=== PATIENT | female | born 1985 | race African-American/Black ===

== ENCOUNTER 2017-05-02 15:36 | Emergency (ER) | payer OTHER ==
[~2017-05-02] VITALS: Ht 167.6 cm; Wt 51.2 kg
[2017-05-02 15:40] VITALS: Ht 167.6 cm; Wt 51.2 kg
[2017-05-02] MEDS ORDERED: ACETAMINOPHEN 500 MG TAB PO STA (16:18)
[2017-05-02] MEDS ORDERED: CLINDAMYCIN 600 MG/D5W (PMX) 50 ML IVPB SCH (16:30)
[2017-05-02] MEDS ORDERED: SOD CHLORIDE 0.9% 1,000 ML IV STA (16:37)
[2017-05-02 16:48] LABS: BASOPHILS % 0.3 % (0.0-2.0); HEMATOCRIT 34.9 % (37.0-47.0); HEMOGLOBIN 12.2 g/dl (12.0-16.0); LYMPHOCYTES # 1.3 10^3/ul (0.8-2.9); LYMPHOCYTES % 44.7 % (15.0-51.0); MEAN PLATELET VOLUME 11.7 fl (7.4-10.4); MONOCYTE # 0.3 10^3/ul (0.3-0.9); MONOCYTES % 9.2 % (0.0-11.0); NEUTROPHIL # 1.3 10^3/ul (1.6-7.5); NEUTROPHILS % 45.5 % (39.0-77.0); PLATELET COUNT 129 10^3/UL (140-415); RED BLOOD COUNT 4.36 10^6/ul (4.20-5.40); RED CELL DISTRIBUTION WIDTH 14.1 % (11.5-14.5)
[2017-05-02 17:03] LABS: ADD UMIC YES; UR ASCORBIC ACID NEGATIVE (NEGATIVE); UR BILIRUBIN (Dip) NEGATIVE (NEGATIVE); UR BLOOD (Dip) NEGATIVE (NEGATIVE); UR CLARITY SLIGHTLY CLOUDY (CLEAR); UR COLOR AMBER (YELLOW); UR GLUCOSE (Dip) NEGATIVE (NEGATIVE); UR KETONES (Dip) 1+ mg/dL (NEGATIVE); UR LEUKOCYTE ESTERASE (Dip) NEGATIVE Leu/ul (NEGATIVE); UR MUCUS MANY /HPF (NONE SEEN); UR NITRITE (Dip) NEGATIVE (NEGATIVE); UR RBC 2 /HPF (0-5); UR SPECIFIC GRAVITY (Dip) 1.032 (1.003-1.030); UR SQUAMOUS EPITHELIAL CELL FEW /HPF (FEW); UR TOTAL PROTEIN (Dip) 2+ mg/dl (NEGATIVE); UR UROBILINOGEN (Dip) 2+ mg/dL (NEGATIVE)
[2017-05-02 17:04] LABS: PARTIAL THROMBOPLASTIN TIME 29.2 Sec (25.0-35.0); PROTIME 13.2 Sec (12.2-14.2)
[2017-05-02 17:08] LABS: ALBUMIN 4.4 g/dl (3.3-4.9); ALBUMIN/GLOBULIN RATIO 1.22; BILIRUBIN,INDIRECT 0.2 mg/dl (0-1.1); BILIRUBIN,TOTAL 0.2 mg/dl (0.2-1.3); CALCIUM 8.6 mg/dl (8.4-10.2); CREATININE 0.87 mg/dl (0.44-1.00)
[2017-05-02] MEDS ORDERED: LIDOCAINE 1%/EPI 30 ML INJ INJ STA (17:08)
[2017-05-02] MEDS ORDERED: HYDROmorphONE 0.5 MG/0.5 ML SYG IV STA (17:57)
[2017-05-02] MEDS ORDERED: ONDANSETRON 4 MG INJ IV STA (18:00)
--- NOTE | 2017-05-02 18:12 | RADRPT ---
PROCEDURE: Left breast ultrasound. CLINICAL INDICATION: Left breast pain and tenderness, fibrocystic disease of breast TECHNIQUE: Left whole, four-quadrant, and retroareolar, breast and axillary sonography was perform ed. COMPARISON: None FINDINGS: No solid or suspicious masses. No areas of architectural distortion. No malignant adenopathy. There is a left, subareolar moderate mastitis with a 3.3 x 3.2 x 2 cm area of phlegmon. IMPRESSION: No sonographic evidence of malignancy. Left subareolar moderate mastitis with a 3.3 cm area of phleg mon. ACR BIRADS 2: BENIGN RPTAT: AA .Elise Centeno MD, MD Date Time Electronically viewed and signed by .Elise Centeno MD, MD on 05/02/2017 18:11 .F/
[2017-05-02] MEDS ORDERED: CLIN-73 PO (18:32)
[2017-05-02] MEDS ORDERED: HYDR-906 PO (18:33)
[2017-05-02 19:24] VITALS: BP 112/62; PULSE 78; RESP 22; TEMP 98.8
--- NOTE | 2017-05-02 20:13 | ERD ---
ER Documentation Chief Complaint Chief Complaint LEFT BREAST ABSCESS; TOOK MEDS, NOT IMPROVING; SENT FOR RE-EVAL HPI This is a 32-year-old female presenting to the emergency department with an subareolar abscess on her left breast for the past 2 weeks. Patient states that she was seen at all of you and was given Keflex and Bactrim, patient states that she finished the antibiotics 2 days prior to being seen. Patient states that she was seen at with her primary care physician who referred her here since she still has a fever and abscess. She admits to having drainage. Denies any medications today ROS All systems reviewed and are negative except as per history of present illness. Medications Home Meds Active Scripts Hydrocodone/Acetaminophen ([place] 5-325 Tablet) 1 Each Tablet, 1-2 TAB PO Q6H Y for PAIN, #30 TAB Prov:HANANE MATHEWS PA-C 05/02/17 Clindamycin Hcl* (Clindamycin Hcl*) 300 Mg Capsule, 300 MG PO TID for 10 Days, CAP Prov:HANANE MATHEWS PA-C 05/02/17 Allergies Allergies: Coded Allergies: No Known Allergy (Unverified , 05/02/17) PMhx/Soc Medical and Surgical Hx: pt denies Medical Hx, pt denies Surgical Hx History of Surgery: No Anesthesia Reaction: No Hx Neurological Disorder: No Hx Respiratory Disorders: No Hx Cardiac Disorders: No Hx Psychiatric Problems: No Hx Miscellaneous Medical Probl: No Hx Alcohol Use: No Hx Substance Use: No Hx Tobacco Use: No Smoking Status: Never smoker Physical Exam Vitals Vital Signs Date Time Temp Pulse Resp B/P Pulse Ox O2 Delivery O2 Flow Rate FiO2 05/02/17 19:24 98.8 78 22 112/62 98 Room Air 05/02/17 15:40 100.5 104 22 107/65 98 Physical Exam Const: WDWN Head: Atraumatic Eyes: Normal Conjunctiva ENT: Normal External Ears, Nose and Mouth. Neck: Full range of motion..~ No meningismus. Resp: Clear to auscultation bilaterally Cardio: Regular rate and rhythm, no murmurs Abd: Soft, non tender, non distended. Normal bowel sounds Skin: No petechiae or rashes Back: No midline or flank tenderness Ext: Fluctuance and warmth felt subareolar left breast, no erythema or induration noted Neur: Awake and alert Psych: Normal Mood and Affect Result Diagram: 05/02/17 1630 05/02/17 1630 Results 24 hrs Laboratory Tests Test 05/02/17 16:30 White Blood Count 3.010^3/ul Red Blood Count 4.3610^6/ul Hemoglobin 12.2g/dl Hematocrit 34.9% Mean Corpuscular Volume 80.0fl Mean Corpuscular Hemoglobin 28.0pg Mean Corpuscular Hemoglobin Concent 35.0g/dl Red Cell Distribution Width 14.1% Platelet Count 78235^3/UL Mean Platelet Volume 11.7fl Neutrophils % 45.5% Lymphocytes % 44.7% Monocytes % 9.2% Eosinophils % 0.0% Basophils % 0.3% Nucleated Red Blood Cells % 0.0/100WBC Neutrophils # 1.310^3/ul Lymphocytes # 1.310^3/ul Monocytes # 0.310^3/ul Eosinophils # 0.010^3/ul Basophils # 0.010^3/ul Nucleated Red Blood Cells # 0.010^3/ul Prothrombin Time 13.2Sec Prothrombin Time Ratio 1.0 INR International Normalized Ratio 1.00 Activated Partial Thromboplast Time 29.2Sec Urine Color KEVIN Urine Clarity SLIGHTLY CLOUDY Urine pH 5.0 Urine Specific [place] 1.032 Urine Ketones 1+mg/dL Urine Nitrite NEGATIVEmg/dL Urine Bilirubin NEGATIVEmg/dL Urine Urobilinogen 2+mg/dL Urine Leukocyte Esterase NEGATIVELeu/ul Urine Microscopic RBC 2/HPF Urine Microscopic WBC 5/HPF Urine Squamous Epithelial Cells FEW/HPF Urine Mucus MANY/HPF Urine Hemoglobin NEGATIVEmg/dL Urine Glucose NEGATIVEmg/dL Urine Total Protein 2+mg/dl Sodium Level 136mmol/L Potassium Level 4.0mmol/L Chloride Level 101mmol/L Carbon Dioxide Level 26mmol/L Anion Gap 13 Blood Urea Nitrogen 9mg/dl Creatinine 0.87mg/dl Glucose Level 110mg/dl Lactic Acid Level 0.9mmol/L Calcium Level 8.6mg/dl Total Bilirubin 0.2mg/dl Direct Bilirubin 0.00mg/dl Indirect Bilirubin 0.2mg/dl Aspartate Amino Transf (AST/SGOT) 36IU/L Alanine Aminotransferase (ALT/SGPT) 31IU/L Alkaline Phosphatase 63IU/L Total Protein 8.0g/dl Albumin 4.4g/dl Globulin 3.60g/dl Albumin/Globulin Ratio 1.22 Current Medications Medications (Trade) Dose Ordered Sig/Mary Route PRN Reason Start Time Stop Time Status Last Admin Dose Admin Acetaminophen 1000 mg 1,000 mg ONCE STAT PO 05/02/17 16:18 05/02/17 16:20 DC 05/02/17 16:32 Clindamycin HCl/ Dextrose 50 ml @ 50 mls/hr ONCE IVPB 05/02/17 16:30 05/02/17 17:29 DC 05/02/17 17:00 Sodium Chloride (NS) 1,000 ml @ 1,000 mls/hr Q1H STAT IV 05/02/17 16:37 05/02/17 17:36 DC 05/02/17 17:00 Lidocaine/ Epinephrine (Xylocaine 1%/ Epi (Pf)) 30 ml ONCE STAT INJ 05/02/17 17:08 05/02/17 17:09 DC Hydromorphone HCl (Dilaudid) 0.5 mg ONCE STAT IV 05/02/17 17:57 05/02/17 17:59 DC 05/02/17 18:05 Ondansetron HCl (Zofran Inj) 8 mg ONCE STAT IV 05/02/17 18:00 05/02/17 18:01 DC 05/02/17 18:04 Procedures/MDM This is a 32-year-old female presenting to the emergency department with a subareolar left breast abscess for the past 2 weeks. Patient has failed outpatient antibiotics with Keflex and Bactrim. She presents with fever, but no evidence of sepsis. There was no evidence of tendon or arterial damage. There was no evidence of osteomyelitis, lymphangitis, necrotizing fasciitis. Patient is appropriate for a another trial of outpatient antibiotics since an incision and drainage was never performed on the abscess the first time. In the ED incision and drainage procedure was done, listed below. IV access established, patient did not have any leukocytosis. Lactate was within normal limits. Patient was given 1 L of fluids, clindamycin, Dilaudid and Zofran.Hemodynamically stable. Discussed two day wound check. return sooner if condition worsens. Patient understood and agreed with this plan. PROCEDURE NOTE: Verbal consent was obtained Wound was irrigated with normal saline Wound was cleansed with Betadine 10 cc Lidocaine 1% with epinephrine was used as a local anesthetic #11 blade scalpel was used for a single 0.25 incision. Copious drainage of purulence occurred Wound packed with iodoform gauze strips Procedure tolerated without complications Wound dressed with sterile gauze. Departure Diagnosis: Primary Impression: Breast abscess Additional Impression: Mastitis Condition: Stable Patient Instructions: Abscess, Incision And Drainage, Mastitis Additional Instructions: FOLLOW UP WITH YOUR PRIMARY CARE PHYSICIAN TOMORROW.Return to this facility if you are not improving as expected. Take all medicines as directed. Return to this facility if you are not improving as expected. HANANE MATHEWS PA-C May 02, 2017 20:13
== END 2017-05-02 19:25 | disposition home or self-care (01) ==
LOC: FTE 15:36
DX: N61.1 Abscess of the breast and nipple (principal); R07.9 Chest pain, unspecified
CPT/HCPCS: 10061; 76642; 80053; 81001; 83605; 85025; 85610; 85730; 87040; 96374; 96375; J1170; J2405; J7030; Z7502; Z7610

== ENCOUNTER 2017-05-06 06:57 | Emergency (ER) | payer OTHER ==
[~2017-05-06] VITALS: Wt 52.2 kg
[~2017-05-06 06:57] MED LIST: CLIN-73 PO; HYDR-906 PO
--- NOTE | 2017-05-06 08:26 | ERD ---
ER Documentation Chief Complaint Chief Complaint 2 day wound check HPI 32-year-old female presented ED for wound check after incision and drainage of her left breast abscess 2 days ago. Patient stated that she does not have any increased pain in the area on the wound. Denies fever or chills. ROS All systems reviewed and are negative except as per history of present illness. Medications Home Meds Active Scripts Hydrocodone/Acetaminophen ([place] 5-325 Tablet) 1 Each Tablet, 1-2 TAB PO Q6H Y for PAIN, #30 TAB Prov:HANANE MATHEWS PA-C 05/02/17 Clindamycin Hcl* (Clindamycin Hcl*) 300 Mg Capsule, 300 MG PO TID for 10 Days, CAP Prov:HANANE MATHEWS PA-C 05/02/17 Allergies Allergies: Coded Allergies: No Known Allergy (Unverified , 05/06/17) PMhx/Soc Medical and Surgical Hx: pt denies Medical Hx, pt denies Surgical Hx History of Surgery: No Anesthesia Reaction: No Hx Neurological Disorder: No Hx Respiratory Disorders: No Hx Cardiac Disorders: No Hx Psychiatric Problems: No Hx Miscellaneous Medical Probl: No Hx Alcohol Use: No Hx Substance Use: No Hx Tobacco Use: No Smoking Status: Never smoker Physical Exam Vitals Vital Signs Date Time Temp Pulse Resp B/P Pulse Ox O2 Delivery O2 Flow Rate FiO2 05/06/17 07:04 97.8 73 18 98/64 99 Physical Exam General: Well-developed, well-nourished, conscious and coherent, in no distress Skin: Warm and dry without rash, good texture and turgor Head: Normocephalic without evidence of trauma Eyes: Sclera and conjunctivae normal; pupils equal, round, and reactive to light; extraocular movements are intact Chest: Normal AP diameter. Good expansion without retractions. Nontender. Lungs are clear to auscultate bilaterally with good tidal volume Heart: Regular rate and rhythm. No murmur, rub, or gallops heard Abdomen: Soft and nontender without masses, guarding, or rebound. Bowel sounds are active. No hepatosplenomegaly Back: Without spinal or CVA tenderness Extremities: Full range of motion. Good strength bilaterally. No clubbing, cyanosis, or edema. Peripheral pulses are intact. Sensation intact Neuro: Alert and oriented 4, GCS 15. Cranial nerves grossly intact. Motor and sensory exams nonfocal. Moves all extremities. Speech clear. Gait normal Procedures/MDM Wound dressing and packing removed. Abscess has sufficiently closed, no additional packing is necessary. There is small amount of purulent drainage from the wound. No periwound erythema, swelling, or induration. Patient does not have any sign of systemic infection. I doubt sepsis. Breast exam performed. No mass noted. No axillary lymph nodes. I doubt breast cancer. Patient advised to take clindamycin as prescribed, and return to the ED in 2 days for another wound check. Disclaimer: Inadvertent spelling and grammatical errors are likely due to EHR/ dictation software use and do not reflect on the overall quality of patient care. Also, please note that the electronic time recorded on this note does not necessarily reflect the actual time of the patient encounter. Departure Diagnosis: Primary Impression: Encounter for wound re-check Condition: Stable Patient Instructions: Wound Care, Breast Self-Exam (BSE) Referrals: RICARDO ALVARADO MD (PCP) Additional Instructions: Return to this facility in 2 DAYS for a follow-up exam.Return sooner if your condition worsens. IDA COPELAND NP May 06, 2017 08:26
== END 2017-05-06 08:15 | disposition home or self-care (01) ==
LOC: FTE 06:57
DX: Z48.01 Encounter for change or removal of surgical wound dressing (principal)
CPT/HCPCS: 99281